=== PATIENT | female | born 1960 | race Caucasian/White ===

== ENCOUNTER → 2017-06-29 | Outpatient (CLI) | payer OTHER ==
[~2017-06-29] MED LIST: ATOR-24 PO; ATV1 PO; CIPR-255 PO; NXM/40 PO; PROM12.56 PO; ZNTT/150 PO
[2017-06-29 12:31] LABS: BASO % 0.4 %; BASO ABS # 0.04 K/uL (0-0.2); COMPLETE YES; EOS % 1.6 %; HEMATOCRIT 40.9 % (37-47); IG% 0.2 %; LYMPH % 30.9 %; LYMPH ABS # 3.46 K/uL (1.2-3.4); MEAN CELL VOLUME 89.9 fL (80-100); MEAN CORPUSCULAR HEMOGLOBIN 29.7 pg (25-34); MEAN PLATELET VOLUME 10.5 fL (7.4-10.4); MONO % 7.1 %; NEUT % 59.8 %; PLATELET COUNT 270 K/uL (130-400); RED BLOOD COUNT 4.55 M/uL (4.2-5.4)
[2017-06-29 12:54] LABS: ALT/SGPT 26 U/L (12-78); BLOOD UREA NITROGEN 19 mg/dl (7-18); CALCIUM 9.7 mg/dl (8.5-10.1); CARBON DIOXIDE 26 mmol/L (21-32); CHLORIDE 104 mmol/L (98-107); CHOLESTEROL 134 mg/dl (0-200); CREATININE 0.77 mg/dl (0.60-1.20); GLUCOSE 97 mg/dl (70-99); POTASSIUM 4.3 mmol/L (3.5-5.1); SODIUM 140 mmol/L (136-145)
[2017-06-29 12:57] LABS: ALB/GLOB RATIO 1.2 (0.9-2); ALKALINE PHOSPHATASE 95 U/L (45-117); AST/SGOT 15 U/L (15-37); HDL CHOLESTEROL 45 mg/dl; LDL CHOLESTEROL CALCULATED 65 mg/dl; TRIGLYCERIDES 118 mg/dl (0-150); VERY LOW DENSITY LIPOPROT CALC 24 mg/dl
== END | disposition home or self-care (01) ==
LOC: C.LABMFLN 07:04
PROVIDERS: ATTEND Family Medicine
DX: M54.2 Cervicalgia (principal); E78.5 Hyperlipidemia, unspecified

== ENCOUNTER → 2017-08-08 | Outpatient (CLI) | payer OTHER ==
[~2017-08-08] MED LIST changes: +ACET-1256 PO; +AMOX875T PO; +ATV/1 PO; +CETI10TA84 PO; +DOCU-94 PO; +HYDR-4079 PO; +NAPR1TAB9 PO; +OMEP-334 PO; +ONDA4TAB46 PO; +PRLSR20 PO; +PROM12.529 PO; -PROM12.56 PO; +RANI150T85 PO; +SACC250C3 PO; -ZNTT/150 PO; +[UNRECOGNIZED DRUG - CODE] PO
--- NOTE | 2017-08-09 13:48 | MAMMOGRAPHY REPORT ---
BILATERAL DIGITAL SCREENING MAMMOGRAM TOMOSYNTHESIS WITH CAD: 08/08/2017 CLINICAL HISTORY: Routine screening. Patient has no complaints. TECHNIQUE: Breast tomosynthesis in addition to standard 2D mammography was performed. Current study was also evaluated with a Computer Aided Detection (CAD) system. COMPARISON: Comparison is made to exams dated: 04/12/2016 mammogram - [facility], mammogram, 10/06/2013 mammogram, 10/01/2012 mammogram, 09/20/2011 mammogram, and 09/19/2010 mammog mikal - [facility]. BREAST COMPOSITION: The tissue of both breasts is heterogeneously dense, which may obscure small mas ses. FINDINGS: The parenchymal pattern is similar to prior mammograms. There are benign coarse calcifica tions in the superior left breast. No developing mass, architectural distortion or cluster of suspic ious microcalcifications is seen. IMPRESSION: ACR BI-RADS CATEGORY 2: BENIGN There is no mammographic evidence of malignancy. A 1 year screening mammogram is recommended. The pa tient will receive written notification of the results. Approximately 10% of breast cancers are not detected with mammography. A negative mammographic report should not delay biopsy if a clinically suggestive mass is present. Adalgisa Rueda M.D. ay/:08/08/2017 17:28:41 Sinter Machine Operator: Shirley LUCIANO(Isaac)(Sonia), [facility] letter sent: Normal 1/2 BI-RADS Code: ACR BI-RADS Category 2: Benign
== END | disposition home or self-care (01) ==
LOC: C.MAMM 17:11
PROVIDERS: ATTEND Family Medicine
DX: Z12.31 Encounter for screening mammogram for malignant neoplasm of breast (principal)

== ENCOUNTER 2017-12-04 12:14 | Emergency (ER) | payer BC, OTHER ==
[~2017-12-04] VITALS: Ht 154.9 cm; Wt 71.8 kg
[~2017-12-04 12:14] MED LIST changes: -ACET-1256 PO; -AMOX875T PO; -ATV/1 PO; -CETI10TA84 PO; -DOCU-94 PO; -HYDR-4079 PO; -NAPR1TAB9 PO; -OMEP-334 PO; -ONDA4TAB46 PO; -PRLSR20 PO; -SACC250C3 PO; -[UNRECOGNIZED DRUG - CODE] PO
[2017-12-04 12:15] VITALS: Ht 154.9 cm; Wt 71.8 kg
[2017-12-04] MEDS ORDERED: KETOROLAC TROMETHAMINE 30 MG/ML VIAL IV STA (12:31)
[2017-12-04] MEDS ORDERED: ONDANSETRON INJ 2 MG/ML 2 ML VIAL IV STA (12:31)
[2017-12-04] MEDS ORDERED: SODIUM CHLORIDE 0.9% 1000ML 500 ML IV STA (12:31)
--- NOTE | 2017-12-04 12:41 | EMERGENCY ROOM VISIT NOTE ---
History Report prepared by Jono: Abdiel Pennington Under the Supervision of: Dr. Ravindra Kearney M.D. First contact with patient: 12:24 Chief Complaint: ABDOMINAL PAIN Stated Complaint: SEVERE ABD PAIN History of Present Illness The patient is a 57 year old female who presents to the Emergency Room with complaints of waxing and waning left lower quadrant abdominal pain for the past day and a half. She currently rates her discomfort as a 5/10 in severity. The patient states that she has a history of diverticulitis, and she had vegetable soup with corn in it two nights ago, and she thinks that she is having a flare up. She notes that the last time she had a flare up was two years ago. The patient notes that the pain is similar, though this pain is going into her back. She additionally reports that she is having some nausea and a fever, though she has not vomited. The patient states that the pain is worsened with movement and relieved with sitting still. She notes that she took Aleve this morning, and it did not help the pain. The patient has a history of a hysterectomy and an appendectomy. She denies any history of diabetes. Source of History: patient Onset: the past day and a half Position: abdomen (LLQ) Symptom Intensity: 5/10 Timing: waxes/wanes Associated Symptoms: + fevers, + nausea, No vomiting Review of Systems See HPI for pertinent positives & negatives. A total of 10 systems reviewed and were otherwise negative. Past Medical & Surgical Medical Problems: (1) History of diverticulitis Surgical Problems: (1) History of appendectomy Family History Colon cancer Social History Smoking Status: Current Some Day Smoker Alcohol Use: occasionally Drug Use: none Marital Status: Housing Status: lives with family Occupation Status: employed Current/Historical Medications Scheduled Acetaminophen (Tylenol), 1,000 MG PO UD Amoxicillin & Pot Clavulanate (Augmentin 875-125 mg), 875 MG PO BID Atorvastatin (Lipitor), 40 MG PO HS Cetirizine (Zyrtec), 10 MG PO QAM Naproxen (Aleve), 220 MG PO UD Omeprazole (Prilosec), 40 MG PO QAM Ranitidine (Zantac), 150 MG PO HS Scheduled PRN Lorazepam (Ativan *), 1 MG PO HS PRN for Insomnia Tizanidine HCl (Tizanidine Hydrochloride), 2 MG PO TID PRN for Muscle Spasms Allergies Coded Allergies: Adhesives (Verified Allergy, Unknown, BLISTERS, 12/04/17) Physical Exam Vital Signs Date Time Temp Pulse Resp B/P (MAP) Pulse Ox O2 Delivery O2 Flow Rate FiO2 12/04/17 15:47 37.0 69 18 157/92 97 12/04/17 14:20 77 18 142/83 96 12/04/17 12:15 37.0 76 20 136/93 97 Room Air Physical Exam GENERAL: Patient is in no acute distress. HEENT: No acute trauma, normocephalic atraumatic, mucous membranes moist, no nasal congestion, no scleral icterus. NECK: No stridor, no adenopathy, no meningismus, trachea is midline. LUNGS: Clear to auscultation bilaterally, no wheeze, no rhonchi, breath sounds equal. HEART: Without murmurs gallops or rubs, regular rate and rhythm. ABDOMEN: Soft, diffusely mildly tender but moderately tender in the left lower quadrant, bowel sounds positive, no hernias, no peritonitis. EXTREMITIES: No cyanosis or edema, full range of motion of all the joints without pain or difficulty, no signs for acute trauma. NEUROLOGIC: Oriented x 3, no acute motor or sensory deficits, no focal weakness. SKIN: No rash, no jaundice, no diaphoresis. Medical Decision & Procedures ER Provider Diagnostic Interpretation: Radiology results as stated below per my review and radiologist interpretation: CT OF THE ABDOMEN AND PELVIS WITH CONTRAST CLINICAL HISTORY: Severe left lower quadrant abdominal pain. Possible diverticulitis. COMPARISON STUDY: CT of the abdomen and pelvis March 31, 2016. TECHNIQUE: Following IV administration of 94 mL of Optiray-320, axial images of the abdomen and pelvis were obtained from the lung bases to the proximal femurs. Images were reviewed in the axial, sagittal, and coronal planes. IV contrast was administered without complication. A dose lowering technique was utilized adhering to the principles of ALARA. CT DOSE: 343.45 mGy.cm FINDINGS: Visualized portions of the lower lungs demonstrate mild subpleural opacities with possible emphysema. No pneumatosis, free air or portal venous gas is present. The liver, spine spleen, adrenal glands, kidneys and pancreas are unremarkable. There is no biliary or pancreatic ductal dilatation to there is no hydronephrosis or hydroureter. There is mild to moderate plaque of the abdominal aorta. Caliber of small and large bowel is normal. There is sigmoid diverticulosis without definite evidence for acute diverticulitis. Mild sigmoid colon wall thickening is likely due to underdistention. The appendix is not visualized. There is no evidence for a bowel obstruction. There are surgical clips within the lower abdomen and pelvis. No suspicious osseous lesions are present. The uterus is not visualized and is likely surgically absent. IMPRESSION: 1. Mild sigmoid colon wall thickening which is likely due to underdistention. However, a mild nonspecific colitis could appear similar. 2. No bowel obstruction. Electronically signed by: Aubrey Burden M.D. 12/04/2017 1:48 PM Dictated Date/Time: 12/04/2017 1:38 PM Laboratory Results 12/04/17 12:40 Red Blood Count 4.92, Mean Corpuscular Volume 87.4, Mean Corpuscular Hemoglobin 30.1, Mean Corpuscular Hemoglobin Concent 34.4, Mean Platelet Volume 10.4, Neutrophils (%) (Auto) 65.6, Lymphocytes (%) (Auto) 26.9, Monocytes (%) (Auto) 6.5, Eosinophils (%) (Auto) 0.5, Basophils (%) (Auto) 0.3, Neutrophils # (Auto) 7.10, Lymphocytes # (Auto) 2.91, Monocytes # (Auto) 0.70, Eosinophils # (Auto) 0.05, Basophils # (Auto) 0.03 12/04/17 12:40 Test 12/04/17 12:24 12/04/17 12:40 Urine Color DK YELLOW Urine Appearance CLEAR (CLEAR) Urine pH 5.5 (4.5-7.5) Urine Specific [place] 1.031 (1.000-1.030) Urine Protein TRACE (NEG) Urine Glucose (UA) NEG (NEG) Urine Ketones TRACE (NEG) Urine Occult Blood 2+ (NEG) Urine Nitrite NEG (NEG) Urine Bilirubin NEG (NEG) Urine Urobilinogen NEG (NEG) Urine Leukocyte Esterase TRACE (NEG) Urine WBC (Auto) 1-5 /hpf (0-5) Urine RBC (Auto) 5-10 /hpf (0-4) Urine Hyaline Casts (Auto) 1-5 /lpf (0-5) Urine Epithelial Cells (Auto) 10-20 /lpf (0-5) Urine Bacteria (Auto) NEG (NEG) White Blood Count 10.81 K/uL (4.8-10.8) Red Blood Count 4.92 M/uL (4.2-5.4) Hemoglobin 14.8 g/dL (12.0-16.0) Hematocrit 43.0 % (37-47) Mean Corpuscular Volume 87.4 fL (80-100) Mean Corpuscular Hemoglobin 30.1 pg (25-34) Mean Corpuscular Hemoglobin Concent 34.4 g/dl (32-36) Platelet Count 272 K/uL (130-400) Mean Platelet Volume 10.4 fL (7.4-10.4) Neutrophils (%) (Auto) 65.6 % Lymphocytes (%) (Auto) 26.9 % Monocytes (%) (Auto) 6.5 % Eosinophils (%) (Auto) 0.5 % Basophils (%) (Auto) 0.3 % Neutrophils # (Auto) 7.10 K/uL (1.4-6.5) Lymphocytes # (Auto) 2.91 K/uL (1.2-3.4) Monocytes # (Auto) 0.70 K/uL (0.11-0.59) Eosinophils # (Auto) 0.05 K/uL (0-0.5) Basophils # (Auto) 0.03 K/uL (0-0.2) RDW Standard Deviation 42.4 fL (36.4-46.3) RDW Coefficient of Variation 13.2 % (11.5-14.5) Immature Granulocyte % (Auto) 0.2 % Immature Granulocyte # (Auto) 0.02 K/uL (0.00-0.02) Anion Gap 7.0 mmol/L (3-11) Est Creatinine Clear Calc Drug Dose 66.9 ml/min Estimated GFR () 89.4 Estimated GFR (Non- 77.2 BUN/Creatinine Ratio 17.8 (10-20) Calcium Level 9.9 mg/dl (8.5-10.1) Total Bilirubin 0.5 mg/dl (0.2-1) Aspartate Amino Transf (AST/SGOT) 26 U/L (15-37) Alanine Aminotransferase (ALT/SGPT) 41 U/L (12-78) Alkaline Phosphatase 95 U/L (45-117) Total Protein 8.5 gm/dl (6.4-8.2) Albumin 4.4 gm/dl (3.4-5.0) Globulin 4.1 gm/dl (2.5-4.0) Albumin/Globulin Ratio 1.1 (0.9-2) Lipase 94 U/L (73-393) Laboratory results reviewed by me. Medications Administered Medications (Trade) Dose Ordered Sig/Patrick Route Start Time Stop Time Status Last Admin Dose Admin Sodium Chloride 500 ml @ 999 mls/hr Q31M STAT IV 12/04/17 12:31 12/04/17 13:01 DC 12/04/17 12:49 999 MLS/HR Ondansetron HCl (Zofran Inj) 4 mg NOW STAT IV 12/04/17 12:31 12/04/17 12:33 DC 12/04/17 12:50 4 MG Ketorolac Tromethamine (Toradol Inj) 30 mg NOW STAT IV 12/04/17 12:31 12/04/17 12:33 DC 12/04/17 12:50 30 MG Morphine Sulfate (MoRPHine SULFATE INJ) 4 mg NOW STAT IV 12/04/17 14:02 12/04/17 14:03 DC 12/04/17 14:25 4 MG Ampicillin Sodium/ Sulbactam Sodium 3000 mg/Sodium Chloride 108 ml @ 200 mls/hr ONE ONCE IV 12/04/17 14:30 12/04/17 15:02 DC 12/04/17 14:50 200 MLS/HR ED Course 1224: The patient was evaluated in room C2. A complete history and physical exam was performed. 1231: Toradol 30mg IV, Zofran 4mg IV, Sodium Chloride 500 ml @ 999 mls/hr IV 1402: Morphine Sulfate 4mg IV 1409: Reevaluated the patient. Discussed results and discharge instructions: she verbalized understanding and agreement. The patient is ready for discharge after antibiotics. 1430: Ampicillin Sodium/ Sulbactam Sodium 3000mg/ Sodium Chloride 108ml @ 200mls /hr IV Medical Decision Differential diagnoses include: diverticulitis, abscess, bowel perforation, viral illness, musculoskeletal pain, UTI, pancreatitis, and pneumonia. There is a very mild leukocytosis, this could be consistent with infection or her pain. No worrisome anemia. No significant electrolyte abnormality, kidney failure, hepatitis or pancreatitis. Urinalysis shows contamination, no obvious infection. Abdominal and pelvis CT does not show true diverticulitis, no abscess or bowel obstruction. An area of colonic inflammation was seen. The patient presents with left lower quadrant abdominal pain. I do think antibiotic treatment would be indicated as this is likely early diverticulitis. She was given IV Unasyn. She received IV Toradol, IV Zofran. The patient was given IV morphine for additional pain control. She received a small bolus of IV saline. The patient is doing well and I do think can be discharged. She is not toxic. She will be on Augmentin twice a day for a week. She has hydrocodone at home to use for pain. If things worsen, she will return. Outpatient family doctor follow-up was suggested. [place] Drug Monitoring Program Search Results: patient reviewed within database Drug Monitoring Findings: The patient was given 100 Hydrocodone tablets on 11/19/17 Medication Reconcilliation Current Medication List: was personally reviewed by me Blood Pressure Screening Patient's blood pressure: Elevated blood pressure Blood pressure disposition: Elevated BP felt to be situational Impression Primary Impression: Abdominal pain, left lower quadrant Scribe Attestation The scribe's documentation has been prepared under my direction and personally reviewed by me in its entirety. I confirm that the note above accurately reflects all work, treatment, procedures, and medical decision making performed by me. Departure Information Dispostion Home / Self-Care Prescriptions Amoxicillin & Pot Clavulanate (Augmentin 875-125 mg) 1 Tab Tab 875 MG PO BID for 7 Days, #14 TAB Prov: Ravindra Kearney M.D. 12/04/17 Referrals Jocelyn Ball M.D. (PCP) Forms Call Back Authorization, HOME CARE DOCUMENTATION FORM, IMPORTANT VISIT INFORMATION, Work Instructions Patient Instructions My [facility] Additional Instructions augmentin 2x per day for 1 week use your hydrocodone that was prescribed 11/19/17 for pain as needed heat to the area may help rest bland diet return for worsening pain, vomiting or if not improving see tricia manzano later this week for a reheck
[2017-12-04] MEDS ORDERED: OPTIRAY 320 IV PRN (12:45)
[2017-12-04 12:59] LABS: BASO % 0.3 %; BASO ABS # 0.03 K/uL (0-0.2); EOS % 0.5 %; EOS ABS # 0.05 K/uL (0-0.5); HEMOGLOBIN 14.8 g/dL (12.0-16.0); IG# 0.02 K/uL (0.00-0.02); LYMPH % 26.9 %; LYMPH ABS # 2.91 K/uL (1.2-3.4); MEAN CELL VOLUME 87.4 fL (80-100); MEAN CORPUSCULAR HEMOGLOBIN 30.1 pg (25-34); MEAN CORPUSCULAR HGB CONC 34.4 g/dl (32-36); MEAN PLATELET VOLUME 10.4 fL (7.4-10.4); MONO % 6.5 %; NEUT % 65.6 %; PLATELET COUNT 272 K/uL (130-400); RED CELL DISTRIBUTION WIDTH CV 13.2 % (11.5-14.5); RED CELL DISTRIBUTION WIDTH SD 42.4 fL (36.4-46.3); WHITE BLOOD COUNT 10.81 K/uL (4.8-10.8)
[2017-12-04 13:14] LABS: ALBUMIN 4.4 gm/dl (3.4-5.0); CALCIUM 9.9 mg/dl (8.5-10.1); CREATININE 0.84 mg/dl (0.60-1.20); POTASSIUM 3.9 mmol/L (3.5-5.1)
[2017-12-04 13:17] LABS: TOTAL PROTEIN 8.5 gm/dl (6.4-8.2)
[2017-12-04] MEDS ORDERED: PRLSR20 PO (13:44)
[2017-12-04] MEDS ORDERED: CETI10TA84 PO (13:45)
[2017-12-04] MEDS ORDERED: [UNRECOGNIZED DRUG - CODE] PO (13:50)
--- NOTE | 2017-12-04 13:50 | DIAGNOSTIC IMAGING REPORT ---
CT OF THE ABDOMEN AND PELVIS WITH CONTRAST CLINICAL HISTORY: Severe left lower quadrant abdominal pain. Possible diverticulitis. COMPARISON STUDY: CT of the abdomen and pelvis March 31, 2016. TECHNIQUE: Following IV administration of 94 mL of Optiray-320, axial images of the abdomen and pelvis were obtained from the lung bases to the proximal femurs. Images were reviewed in the axial, sagittal, and coronal planes. IV contrast was administered without complication. A dose lowering technique was utilized adhering to the principles of ALARA. CT DOSE: 343.45 mGy.cm FINDINGS: Visualized portions of the lower lungs demonstrate mild subpleural opacities with possible emphysema. No pneumatosis, free air or portal venous gas is present. The liver, spine spleen, adrenal glands, kidneys and pancreas are unremarkable. There is no biliary or pancreatic ductal dilatation to there is no hydronephrosis or hydroureter. There is mild to moderate plaque of the abdominal aorta. Caliber of small and large bowel is normal. There is sigmoid diverticulosis without definite evidence for acute diverticulitis. Mild sigmoid colon wall thickening is likely due to underdistention. The appendix is not visualized. There is no evidence for a bowel obstruction. There are surgical clips within the lower abdomen and pelvis. No suspicious osseous lesions are present. The uterus is not visualized and is likely surgically absent. IMPRESSION: 1. Mild sigmoid colon wall thickening which is likely due to underdistention. However, a mild nonspecific colitis could appear similar. 2. No bowel obstruction. Electronically signed by: Aubrey Burden M.D. 12/04/2017 1:48 PM Dictated Date/Time: 12/04/2017 1:38 PM
[2017-12-04] MEDS ORDERED: NAPR1TAB9 PO (13:52)
[2017-12-04] MEDS ORDERED: ACET-1256 PO (13:52)
[2017-12-04] MEDS ORDERED: MoRPHine SULFATE 4 MG/ML 1 ML CARP\\VIAL IV STA (14:02)
[2017-12-04] MEDS ORDERED: AMOX875T PO (14:22)
[2017-12-04] MEDS ORDERED: AMPICILLIN/SULBACTAM SOD INJ 3,000 MG in SODIUM CHLORIDE 0.9% 100ML 100 ML IV ONE (14:30)
[2017-12-04 15:47] VITALS: BP 157/92; PULSE 69; TEMP 37; O2SAT 97
== END 2017-12-04 15:48 | disposition home or self-care (01) ==
LOC: C.EDB 12:15 → C.EDC 15:48
DX: R10.32 Left lower quadrant pain (principal); D72.829 Elevated white blood cell count, unspecified; R03.0 Elevated blood-pressure reading, without diagnosis of hypertension; R11.0 Nausea; R50.9 Fever, unspecified; K57.92 Diverticulitis of intestine, part unspecified, without perforation or abscess without bleeding; Z90.49 Acquired absence of other specified parts of digestive tract; Z72.0 Tobacco use; Z79.899 Other long term (current) drug therapy; Z91.048 Other nonmedicinal substance allergy status; Z80.0 Family history of malignant neoplasm of digestive organs

== ENCOUNTER 2017-12-06 13:39 | Emergency (ER) | payer BC ==
[~2017-12-06] VITALS: Ht 152.4 cm; Wt 72.1 kg
[~2017-12-06 13:39] MED LIST changes: +ACET-1256 PO; +AMOX875T PO; +CETI10TA84 PO; -CIPR-255 PO; +NAPR1TAB9 PO; -NXM/40 PO; +PRLSR20 PO; -PROM12.529 PO; +[UNRECOGNIZED DRUG - CODE] PO
[2017-12-06 13:45] VITALS: TEMP 36.7; Ht 152.4 cm; Wt 72.1 kg
[2017-12-06] MEDS ORDERED: SODIUM CHLORIDE 0.9% 1000ML 1,000 ML IV STA (14:08)
[2017-12-06] MEDS ORDERED: FENTANYL CITRATE INJ 50 MCG/1 ML 2 ML VIAL IV STA (14:08)
[2017-12-06] MEDS ORDERED: ONDANSETRON INJ 2 MG/ML 2 ML VIAL IV STA (14:08)
--- NOTE | 2017-12-06 14:22 | EMERGENCY ROOM VISIT NOTE ---
History Report prepared by Jono: Abdiel Pennington Under the Supervision of: Dr. Suraj Sherman M.D. First contact with patient: 14:00 Chief Complaint: ABDOMINAL PAIN Stated Complaint: EXTREME STOMACH PAIN,NAUSEA History of Present Illness The patient is a 57 year old female who presents to the Emergency Room with complaints of worsening extreme left sided abdominal pain for the past couple of days. The patient states that she was in the ED two days ago, and she was diagnosed with diverticulitis. She reports that her pain is now extending higher and also lower on the left side. The patient is additionally complaining of back pain, nausea, fatigue, slight fever, and chills. She denies any diarrhea or vomiting. She saw her PCP this morning, and they told her to come to the ED for evaluation due to a possible abscess based on the pain and nausea. The patient states that her last bowel movement was three days ago and was soft, and she states that she usually has a bowel movement once per day. The patient states that she is currently on Augmentin and has been taking ondansetron for her nausea. The patient notes that she has a history of diverticulitis, appendectomy, though she has not had a cholecystectomy. She states that she does not take any blood thinners. Source of History: patient Onset: the past couple of days Position: abdomen (left sided) Symptom Intensity: extreme Timing: worsening Associated Symptoms: + fevers, + chills, + nausea, + back pain, + fatigue, No vomiting, No diarrhea Review of Systems See HPI for pertinent positives and negatives. A total of ten systems were reviewed and were otherwise negative. Past Medical & Surgical Medical Problems: (1) History of diverticulitis Surgical Problems: (1) History of appendectomy Family History Colon cancer Social History Smoking Status: Current Every Day Smoker Alcohol Use: occasionally Drug Use: none Marital Status: Housing Status: lives with family Occupation Status: employed Current/Historical Medications Scheduled Acetaminophen (Tylenol), 1,000 MG PO UD Amoxicillin & Pot Clavulanate (Augmentin 875-125 mg), 875 MG PO BID Atorvastatin (Lipitor), 40 MG PO HS Cetirizine (Zyrtec), 10 MG PO QAM Docusate Sodium (Colace), 1 CAP PO BID Naproxen (Aleve), 220 MG PO UD Omeprazole (Omeprazole Dr), 40 MG PO DAILY Ranitidine (Zantac), 150 MG PO HS Saccharomyces Boulardii (Florastor), 1 CAP PO BID Scheduled PRN Hydrocodone/Acetaminophen 10MG/325MG ([place] 10MG/325MG), 1 TAB PO Q6H PRN for Pain Lorazepam (Ativan), 1 MG PO HS PRN for Sleep Ondansetron Hcl (Zofran), 4 MG PO Q6 PRN for Nausea Tizanidine HCl (Tizanidine Hydrochloride), 2 MG PO TID PRN for Muscle Spasms Allergies Coded Allergies: Adhesives (Verified Allergy, Unknown, BLISTERS, 12/06/17) Physical Exam Vital Signs Date Time Temp Pulse Resp B/P (MAP) Pulse Ox O2 Delivery O2 Flow Rate FiO2 12/06/17 18:01 68 128/80 98 12/06/17 17:39 71 98 12/06/17 17:31 137/90 12/06/17 17:13 139/68 12/06/17 16:57 155/92 12/06/17 16:39 75 13 98 12/06/17 16:31 141/85 12/06/17 16:11 72 18 150/81 96 Room Air 12/06/17 16:09 72 20 100 12/06/17 16:08 150/81 12/06/17 15:09 63 10 99 12/06/17 15:08 66 12/06/17 13:45 36.7 87 18 133/81 98 Room Air Physical Exam GENERAL: Awake, alert, fatigued and uncomfortable-appearing, in no distress HENT: Normocephalic, atraumatic. Oropharynx unremarkable. Dry mucous membranes. EYES: Normal conjunctiva. Sclera non-icteric. NECK: Supple. No nuchal rigidity. FROM. No JVD. RESPIRATORY: Clear to auscultation. CARDIAC: Regular rate, normal rhythm. Extremities warm and well perfused. Pulses equal. ABDOMEN: Generalized abdominal tenderness. No peritoneal signs. Soft, non- distended. No rebound or guarding. No masses. RECTAL: Deferred. MUSCULOSKELETAL: Chest examination reveals no tenderness. The back is symmetrical on inspection without obvious abnormality. There is no CVA tenderness to palpation. No joint edema. LOWER EXTREMITIES: Calves are equal size bilaterally and non-tender. No edema. No discoloration. NEURO: Normal sensorium. No sensory or motor deficits noted. SKIN: No rash or jaundice noted. Medical Decision & Procedures ER Provider Diagnostic Interpretation: Radiology results as stated below per my review and radiologist interpretation: CT OF THE ABDOMEN AND PELVIS WITH CONTRAST CLINICAL HISTORY: Lower abdominal pain, r/o complicated diverticulitis/abscess COMPARISON STUDY: CT of the abdomen and pelvis December 04, 2017. TECHNIQUE: Following IV administration of 94 mL of Optiray-320, axial images of the abdomen and pelvis were obtained from the lung bases to the proximal femurs. Images were reviewed in the axial, sagittal, and coronal planes. IV contrast was administered without complication. A dose lowering technique was utilized adhering to the principles of ALARA. CT DOSE: 347.20 mGy.cm FINDINGS: Mild emphysema is noted within the lower lungs. A 5 mm left lower lobe nodule shown image 28/11/[address] of March 31, 2016. This is likely benign. A subcentimeter right hepatic lobe lesion likely reflects a cyst. The spleen, adrenal glands, kidneys and pancreas are unremarkable. There is no biliary or pancreatic ductal dilatation. The appendix is not visualized and likely surgically absent. The uterus is surgically absent. There is colonic diverticulosis without evidence for acute diverticulitis. There is trace fluid within the pelvis. There is no abscess. No pneumatosis, free air or portal venous gas is present. No suspicious osseous lesions are present. There is no lymphadenopathy. IMPRESSION: 1. Trace fluid within the pelvis, a nonspecific finding. 2. Mild colonic diverticulosis without evidence for acute diverticulitis. No bowel wall thickening. No bowel obstruction. 3. 5 mm left lower lobe nodule which is unchanged since CT of March 31, 2016. This is likely benign. A follow-up chest CT in 6 months to ensure stability is recommended. Electronically signed by: Aubrey Burden M.D. 12/06/2017 4:04 PM Dictated Date/Time: 12/06/2017 3:52 PM Laboratory Results 12/06/17 14:34 Red Blood Count 4.55, Mean Corpuscular Volume 87.5, Mean Corpuscular Hemoglobin 30.3, Mean Corpuscular Hemoglobin Concent 34.7, Mean Platelet Volume 9.9, Neutrophils (%) (Auto) 60.4, Lymphocytes (%) (Auto) 31.3, Monocytes (%) (Auto) 6.6, Eosinophils (%) (Auto) 1.2, Basophils (%) (Auto) 0.2, Neutrophils # (Auto) 7.66, Lymphocytes # (Auto) 3.97, Monocytes # (Auto) 0.84, Eosinophils # (Auto) 0.15, Basophils # (Auto) 0.03 12/06/17 14:34 Test 12/06/17 14:34 12/06/17 14:35 White Blood Count 12.69 K/uL (4.8-10.8) Red Blood Count 4.55 M/uL (4.2-5.4) Hemoglobin 13.8 g/dL (12.0-16.0) Hematocrit 39.8 % (37-47) Mean Corpuscular Volume 87.5 fL (80-100) Mean Corpuscular Hemoglobin 30.3 pg (25-34) Mean Corpuscular Hemoglobin Concent 34.7 g/dl (32-36) Platelet Count 246 K/uL (130-400) Mean Platelet Volume 9.9 fL (7.4-10.4) Neutrophils (%) (Auto) 60.4 % Lymphocytes (%) (Auto) 31.3 % Monocytes (%) (Auto) 6.6 % Eosinophils (%) (Auto) 1.2 % Basophils (%) (Auto) 0.2 % Neutrophils # (Auto) 7.66 K/uL (1.4-6.5) Lymphocytes # (Auto) 3.97 K/uL (1.2-3.4) Monocytes # (Auto) 0.84 K/uL (0.11-0.59) Eosinophils # (Auto) 0.15 K/uL (0-0.5) Basophils # (Auto) 0.03 K/uL (0-0.2) RDW Standard Deviation 41.8 fL (36.4-46.3) RDW Coefficient of Variation 13.1 % (11.5-14.5) Immature Granulocyte % (Auto) 0.3 % Immature Granulocyte # (Auto) 0.04 K/uL (0.00-0.02) Anion Gap 6.0 mmol/L (3-11) Est Creatinine Clear Calc Drug Dose 64.0 ml/min Estimated GFR () 86.9 Estimated GFR (Non- 75.0 BUN/Creatinine Ratio 14.8 (10-20) Lactic Acid Level 1.4 mmol/L (0.4-2.0) Calcium Level 9.4 mg/dl (8.5-10.1) Total Bilirubin 0.4 mg/dl (0.2-1) Direct Bilirubin < 0.1 mg/dl (0-0.2) Aspartate Amino Transf (AST/SGOT) 16 U/L (15-37) Alanine Aminotransferase (ALT/SGPT) 32 U/L (12-78) Alkaline Phosphatase 88 U/L (45-117) Total Protein 8.2 gm/dl (6.4-8.2) Albumin 4.3 gm/dl (3.4-5.0) Lipase 118 U/L (73-393) Urine Color YELLOW Urine Appearance CLEAR (CLEAR) Urine pH 6.5 (4.5-7.5) Urine Specific [place] 1.008 (1.000-1.030) Urine Protein NEG (NEG) Urine Glucose (UA) NEG (NEG) Urine Ketones NEG (NEG) Urine Occult Blood NEG (NEG) Urine Nitrite NEG (NEG) Urine Bilirubin NEG (NEG) Urine Urobilinogen NEG (NEG) Urine Leukocyte Esterase NEG (NEG) Laboratory results reviewed by me Medications Administered Medications (Trade) Dose Ordered Sig/Patrick Route Start Time Stop Time Status Last Admin Dose Admin Sodium Chloride 1,000 ml @ 999 mls/hr Q1H1M STAT IV 12/06/17 14:08 12/06/17 15:08 DC 12/06/17 14:39 999 MLS/HR Ondansetron HCl (Zofran Inj) 4 mg NOW STAT IV 12/06/17 14:08 12/06/17 14:15 DC 12/06/17 14:39 4 MG Fentanyl Citrate (Fentanyl Inj) 50 mcg NOW STAT IV 12/06/17 14:08 12/06/17 14:15 DC 12/06/17 14:39 50 MCG Metoclopramide HCl (Reglan Inj) 10 mg NOW STAT IV 12/06/17 16:30 12/06/17 16:32 DC 12/06/17 16:57 10 MG Sodium Biphosphate/ Sodium Phosphate (Fleet Enema) 132 ml NOW STAT MD 12/06/17 16:30 12/06/17 16:32 DC 12/06/17 16:57 132 ML ED Course 1400: The patient was evaluated in room C1. A complete history and physical exam was performed. 1620: I reevaluated the patient, and she was doing okay. 174: I reevaluated the patient. Discussed results and discharge instructions: she verbalized understanding and agreement. The patient is ready for discharge. Medical Decision I reviewed the patient's past medical history, medications, and the nursing notes as described above. Differential diagnosis: Etiologies such as appendicitis, diverticulitis, PUD, biliary pathology, UTI, pancreatitis, obstruction, mesenteric ischemia, aortic pathology, infections, inflammatory bowel disease, renal colic, as well as others were entertained. The patient is a 57-year-old woman with a past medical history of diverticulitis presents to emergency department with worsening lower abdominal pain in the setting of being seen in the ED on 12/[address] demonstrating with question of sigmoid bowel wall thickening with question of infection versus the fact that the colon was decompressed and subsequently treated with Augmentin for diverticulitis per hpi. On arrival patient is uncomfortable but no acute distress, afebrile stable vital signs. WBC 12 increased from 10 prior, nonspecific. Otherwise, chemistry unremarkable including lactate within normal limits. CT abdomen and pelvis repeated and was unremarkable. Reassessed and still feeling lower abdominal/rectal pressure. Given mild stool burden within the sigmoid colon she was given Reglan and Fleet enema with good effect and subsequent bowel movement of hard stool. Patient feeling significantly improved thereafter. Thus, patient's symptoms today likely related to constipation. Otherwise, unclear if improved CT scan is related to never having diverticulitis or if this is due to effective treatment. I discussed this with the patient and we agreed to continue with her current Augmentin. We will however add probiotic to minimize risk of C. difficile and patient will begin Colace to prevent constipation. Findings and plan for follow-up reviewed with patient. Patient agreeable and d/c'd per discharge instructions. Medication Reconcilliation Current Medication List: was personally reviewed by me Blood Pressure Screening Patient's blood pressure: Elevated blood pressure Blood pressure disposition: Elevated BP felt to be situational Impression Primary Impression: Constipation Scribe Attestation The scribe's documentation has been prepared under my direction and personally reviewed by me in its entirety. I confirm that the note above accurately reflects all work, treatment, procedures, and medical decision making performed by me. Departure Information Dispostion Home / Self-Care Prescriptions Docusate Sodium (COLACE) 100 Mg Cap 1 CAP PO BID for 10 Days, #20 CAP Prov: Suraj Sherman M.D. 12/06/17 Saccharomyces Boulardii (Florastor) 250 Mg Cap 1 CAP PO BID for 10 Days, #20 CAP Prov: Suraj Sherman M.D. 12/06/17 Referrals Jocelyn Ball M.D. (PCP) Forms Call Back Authorization, HOME CARE DOCUMENTATION FORM, IMPORTANT VISIT INFORMATION Patient Instructions ED Constipation, [facility] Additional Instructions Please follow up with your primary care physician in the next 1-3 days for re- evaluation. Your symptoms today are likely due to constipation. Otherwise, your exam, lab results, and CT scan did not show signs of an emergent condition at this time. Acetaminophen or ibuprofen for pain and fevers as needed. Continue your antibiotic as prescribed. Florastor, probiotic, to help prevent antibiotic associated diarrhea. Colace as needed as directed to help prevent constipation. Drink plenty of fluids to ensure hydration. Return to the emergency department for worsening symptoms as described in the accompanying instructions.
[2017-12-06] MEDS ORDERED: OPTIRAY 320 IV PRN (14:30)
[2017-12-06] MEDS ORDERED: ONDA4TAB46 PO (14:32)
[2017-12-06] MEDS ORDERED: OMEP-334 PO (14:32)
[2017-12-06] MEDS ORDERED: ATV/1 PO (14:32)
[2017-12-06] MEDS ORDERED: HYDR-4079 PO (14:33)
[2017-12-06 14:46] LABS: BASO % 0.2 %; BASO ABS # 0.03 K/uL (0-0.2); EOS % 1.2 %; EOS ABS # 0.15 K/uL (0-0.5); HEMATOCRIT 39.8 % (37-47); HEMOGLOBIN 13.8 g/dL (12.0-16.0); IG# 0.04 K/uL (0.00-0.02); LYMPH % 31.3 %; LYMPH ABS # 3.97 K/uL (1.2-3.4); MEAN CELL VOLUME 87.5 fL (80-100); MEAN CORPUSCULAR HEMOGLOBIN 30.3 pg (25-34); MEAN CORPUSCULAR HGB CONC 34.7 g/dl (32-36); MEAN PLATELET VOLUME 9.9 fL (7.4-10.4); MONO % 6.6 %; MONO ABS # 0.84 K/uL (0.11-0.59); NEUT % 60.4 %; NEUT ABS # 7.66 K/uL (1.4-6.5); PLATELET COUNT 246 K/uL (130-400); RED CELL DISTRIBUTION WIDTH CV 13.1 % (11.5-14.5); RED CELL DISTRIBUTION WIDTH SD 41.8 fL (36.4-46.3); WHITE BLOOD COUNT 12.69 K/uL (4.8-10.8)
[2017-12-06 15:11] LABS: ALBUMIN 4.3 gm/dl (3.4-5.0); ALT/SGPT 32 U/L (12-78); AST/SGOT 16 U/L (15-37); BLOOD UREA NITROGEN 13 mg/dl (7-18); CALCIUM 9.4 mg/dl (8.5-10.1); CARBON DIOXIDE 25 mmol/L (21-32); CREATININE 0.86 mg/dl (0.60-1.20); GLUCOSE 87 mg/dl (70-99); LIPASE 118 U/L (73-393); POTASSIUM 3.7 mmol/L (3.5-5.1); SODIUM 142 mmol/L (136-145)
[2017-12-06 15:14] LABS: ALKALINE PHOSPHATASE 88 U/L (45-117); TOTAL PROTEIN 8.2 gm/dl (6.4-8.2)
--- NOTE | 2017-12-06 16:06 | DIAGNOSTIC IMAGING REPORT ---
CT OF THE ABDOMEN AND PELVIS WITH CONTRAST CLINICAL HISTORY: Lower abdominal pain, r/o complicated diverticulitis/abscess COMPARISON STUDY: CT of the abdomen and pelvis December 04, 2017. TECHNIQUE: Following IV administration of 94 mL of Optiray-320, axial images of the abdomen and pelvis were obtained from the lung bases to the proximal femurs. Images were reviewed in the axial, sagittal, and coronal planes. IV contrast was administered without complication. A dose lowering technique was utilized adhering to the principles of ALARA. CT DOSE: 347.20 mGy.cm FINDINGS: Mild emphysema is noted within the lower lungs. A 5 mm left lower lobe nodule shown image 28/11/[address] of March 31, 2016. This is likely benign. A subcentimeter right hepatic lobe lesion likely reflects a cyst. The spleen, adrenal glands, kidneys and pancreas are unremarkable. There is no biliary or pancreatic ductal dilatation. The appendix is not visualized and likely surgically absent. The uterus is surgically absent. There is colonic diverticulosis without evidence for acute diverticulitis. There is trace fluid within the pelvis. There is no abscess. No pneumatosis, free air or portal venous gas is present. No suspicious osseous lesions are present. There is no lymphadenopathy. IMPRESSION: 1. Trace fluid within the pelvis, a nonspecific finding. 2. Mild colonic diverticulosis without evidence for acute diverticulitis. No bowel wall thickening. No bowel obstruction. 3. 5 mm left lower lobe nodule which is unchanged since CT of March 31, 2016. This is likely benign. A follow-up chest CT in 6 months to ensure stability is recommended. Electronically signed by: Aubrey Burden M.D. 12/06/2017 4:04 PM Dictated Date/Time: 12/06/2017 3:52 PM
[2017-12-06] MEDS ORDERED: SOD PHOSPHATE/SOD BIPHOSPHATE ENEMA 132 ML BTL PR STA (16:30)
[2017-12-06] MEDS ORDERED: METOCLOPRAMIDE HCL INJ 5 MG/ML 2 ML VIAL IV STA (16:30)
[2017-12-06] MEDS ORDERED: SACC250C3 PO (17:45)
[2017-12-06] MEDS ORDERED: DOCU-94 PO (17:45)
[2017-12-06 18:01] VITALS: BP 128/80; PULSE 68; O2SAT 98
== END 2017-12-06 18:15 | disposition home or self-care (01) ==
LOC: C.EDB 13:40 → C.EDC 18:15
DX: K59.00 Constipation, unspecified (principal); F17.200 Nicotine dependence, unspecified, uncomplicated; Z90.89 Acquired absence of other organs; Z80.0 Family history of malignant neoplasm of digestive organs; Z91.09 Other allergy status, other than to drugs and biological substances